=== PATIENT | female | born 1995 | race American Indian/Alaskan Native ===

== ENCOUNTER 2017-04-05 16:35 | Outpatient (CLI) | payer MEDICAID ==
[2017-04-05] MEDS ORDERED: LACTATED RINGERS 500 ML IV ONE (17:03)
[2017-04-05 18:34] VITALS: BP 117/65
--- NOTE | 2017-04-06 07:56 | Ultrasound Report ---
Gestation: Single Position: Cephalic Placenta: Posterior Placental Grade: 1 Heart Rate: 145 BPM
== END 2017-04-05 19:35 | disposition home or self-care (01) ==
LOC: TRG 16:35
PROVIDERS: ATTEND Obstetrics & Gynecology
DX: O47.03 False labor before 37 completed weeks of gestation, third trimester (principal); Z3A.29 29 weeks gestation of pregnancy
CPT/HCPCS: 76815

== ENCOUNTER 2017-06-19 03:54 | Inpatient (IN) | payer MEDICAID ==
[2017-06-19] MEDS ORDERED: LACTATED RINGERS 2,000 ML ONE (04:56)
[2017-06-19] MEDS ORDERED: SUBLIMAZE ONE (04:56)
[2017-06-19] MEDS ORDERED: SUBLIMAZE IV ONE (04:58)
[2017-06-19] MEDS ORDERED: LACTATED RINGERS 1,000 ML IV ONE (04:59)
[2017-06-19] MEDS ORDERED: PITOCin/NS 30 UNIT/500ML 30 UNITS/500 ML BAG IV SCH ×2 (05:00→07:00)
[2017-06-19] MEDS ORDERED: LACTATED RINGERS 1,000 ML IV SCH (05:00)
[2017-06-19 05:29] LABS: Hematocrit 34.9 % (30.3-42.9); Hemoglobin 12.3 gm/dl (10.1-14.3); Mean Corpuscular HGB Conc 35 % (30-34); Mean Corpuscular Hemoglobin 34 pg (28-32); Mean Corpuscular Volume 95 fl (79-97); Platelet Count 195 K/mm3 (140-440); Red Blood Count 3.69 M/mm3 (3.65-5.03); Red Cell Distribution Width 13.1 % (13.2-15.2); White Blood Count 8.1 K/mm3 (4.5-11.0)
[2017-06-19] MEDS ORDERED: ePHEDrine SULFATE ONE (05:37)
[2017-06-19] MEDS ORDERED: fentaNYL-BUPIV 2 MCG/ML-0.125% 200 MCG/100 ML BAG EPIDURAL ONE (05:42)
[2017-06-19] MEDS ORDERED: NARCAN 2 MG/2 ML IV PRN (05:59)
[2017-06-19] MEDS ORDERED: ePHEDrine SULFATE IV PRN (05:59)
--- NOTE | 2017-06-19 05:59 | Anesthesia Consultation ---
Anesthesia Consult and Med Hx Date of service: 06/19/17 - Airway Anesthetic Teeth Evaluation: Good ROM Head & Neck: Adequate Mental/Hyoid Distance: Adequate Mallampati Class: Class II Intubation Access Assessment: Probably Good - Pulmonary Exam CTA: Yes - Pre-Operative Health Status ASA Pre-Surgery Classification: ASA2 Proposed Anesthetic Plan: Epidural - Pulmonary Hx Asthma: No COPD: No Hx Pneumonia: No - Cardiovascular System Hx Hypertension: No - Central Nervous System Hx Seizures: No Hx Psychiatric Problems: No - Endocrine Hx Renal Disease: No Hx End Stage Renal Disease: No Hx Hypothyroidism: No Hx Hyperthyroidism: No - Hematic Hx Anemia: Yes Hx Sickle Cell Disease: No - Other Systems Hx Alcohol Use: No
[2017-06-19] MEDS ORDERED: fentaNYL-BUPIV 2 MCG/ML-0.125% 200 MCG/100 ML BAG EPIDURAL SCH (06:00)
--- NOTE | 2017-06-19 06:37 | History and Physical Report ---
History of Present Illness Date of examination: 06/19/17 (presented in labor) Date of admission: 06/19/17 04:38 Chief complaint: ctx since [place] History of present illness: EDC Confirmation: 06/16/2017 Gestational Age: 18 4/7 weeks Past History : 2 Term Births: 1 Premature Births: 0 Living Children: 1 Para: 1 Aborta: 0 Spont. Ab: 0 # 1 Comments: uncomfirmed - patient states this never happened (reviewed documentation in chart from 12/2010) Risk Factors: Smoked Tobacco Use: Never smoker Smokeless Tobacco Use: Never Passive smoke exposure: no Drug use: no HIV high-risk behavior: low risk Caffeine use: 0 drinks per day Alcohol use: no Exercise: no Seatbelt use: preg-counseling specialist % Dietary Counseling: pn yes Past Medical History: Reviewed history from 01/12/2011 and no changes required: Negative Past Medical History Past Surgical History: Reviewed history from 01/12/2011 and no changes required: negative Past Medical History Anesthesia Complications: negative Anemia: negative Autoimmune Disorder: negative Bleeding Disorder: negative Blood Transfusions: negative Breast Disease: negative Diabetes: negative Heart Disease: negative Hypertension: negative Hepatitis/Liver Disease: negative Kidney Disease/UTI: negative Neurologic/Epilepsy/Migraines: negative Phlebitis/Varicosities: negative Psychiatric: negative Pulmonary Disease/Asthma: negative Thyroid Disease: negative Hospitalizations: negative Surgery (Non-medical assistant ob gyn): negative Abnormal PAP: negative HARRISON Exposure: negative Infertility: negative Uterine Anomaly: negative Uterine Surgery (not C/S): negative Other Gynecologic Problems: negative Family Hx: MGM - HTN No family hx CA Social Hx: Patient is single non smoker Infection History Hx of STD: Trich & CT HIV Risk Eval: low risk Hepatitis B Risk Eval: low risk Personal hx. of genital herpes: no Partner hx. of genital herpes: no Rash, Viral, or Febrile illness since last LMP? no Varicella/Chicken Pox Status: Immunized TB Risk: no Genetic History Congenital Heart Defect: Mom: no Dad: no Rivera Disease: Mom: no Dad: no Thalassemia Mom: no Dad: no Neural Tube Defect Mom: no Dad: no Down's Syndrome Mom: no Dad: no Brody-Sachs Mom: no Dad: no Sickle Cell Disease/Trait Mom: no Dad: no Hemophilia Mom: no Dad: no Muscular Dystrophy Mom: no Dad: no Cystic Fibrosis Mom: no Dad: no Ce Chorea Mom: no Dad: no Mental Retardation Mom: no Dad: no Fragile X Mom: no Dad: no Other Genetic/Chromosomal Disorder Mom: no Dad: no Child w/other defect Mom: no Dad: no Enviromental Exposures Xray Exposure: no Medication, drug, or alcohol use since LMP: no Chemical/Other Exposure: no Exposure to Cat Liter: no Hx of Parvovirus (Fifth Disease): no Occupational Exposure to Children: none FALSECurrent Allergies: No known allergies Laboratory Results Date/Time Collected: 01/17/2017 Routine Urinalysis Leukocytes: negative Nitrite: negative Urobilinogen: negative Protein: Negative Blood: negative Ketone: negative Bilirubin: negative Glucose: Negative Urine HCG: positive Review of Systems General Denies fever, chills, sweats, anorexia, fatigue, weakness, malaise, weight loss and sleep disorder. Denies nausea, vomiting, headache, swelling of legs, abdominal pain, vaginal discharge, vaginal bleeding and contractions. Denies vaginal discharge, incontinence, dysuria, hematuria, urinary frequency, amenorrhea, menorrhagia, abnormal vaginal bleeding, pelvic pain, genital sores, decreased libido, painful periods, painful sex, urinary urgency, hot flashes, vaginal dryness, vaginal itching and vaginal odor. CV Denies chest pains, palpitations, syncope, dyspnea on exertion, orthopnea, PND and peripheral edema. Resp Denies cough, dyspnea at rest, excessive sputum, hemoptysis, wheezing and pleurisy. GI Denies nausea, vomiting, diarrhea, constipation, change in bowel habits, abdominal pain, melena, hematochezia, jaundice, gas/bloating, indigestion/ heartburn, dysphagia and odynophagia. Endo Denies cold intolerance, heat intolerance, polydipsia, polyphagia, polyuria and unusual weight change. Breast Denies left breast lump, right breast lump, nipple discharge, bloody discharge from nipple, breast pain, abnormal mammogram and breast enlargement. MS Denies back pain, joint pain, joint swelling, muscle cramps, muscle weakness, stiffness, arthritis, sciatica, restless legs, leg pain at night and leg pain with exertion. Derm Denies rash, itching, dryness and suspicious lesions. Neuro Denies paralysis, paresthesias, headache, seizures, tremors, vertigo, transient blindness, frequent falls, frequent headaches and difficulty walking. Psych Denies depression, anxiety, irritability and mood swings. Eyes Denies blurring, diplopia, irritation, discharge, vision loss, eye pain and photophobia. ENT Denies earache, ear discharge, tinnitus, decreased hearing, nasal congestion, nosebleeds, sore throat and hoarseness. Allergy Denies urticaria, allergic rash, hay fever and recurrent infections. Heme Denies abnormal bruising, bleeding and enlarged lymph nodes. PHYSICAL EXAM HEENT: PERRLA, normal conjunctiva, external nose and nasal mucosa normal, oropharynx clear Neck/Thyroid: supple, thyroid normal Skin no significant abnormal lesions or rashes Chest: respiratory effort normal, clear to auscultation Breasts: normal without skin changes or masses CV: regular, normal S1-S2, no murmur, no rub, no gallop Abdomen: normal bowel sounds, soft, nontender, no HSM Musculoskeletal: grossly normal ROM in joints, no joint tenderness or muscle weakness Neuro: grossly normal DTRs, sensation, strength, cranial nerves Extremities: no clubbing, cyanosis, or edema LEGAL [employer] Exams Fundal Ht: 18wk size: AGA FHT: + activity: + Past History - Obstetrical History Expected Date of Delivery: 06/16/17 Actual Gestation: 40 Week(s) 3 Day(s) : 2 Para: 1 Hx # Term Pregnancies: 1 Number of Living Children: 1 Medications and Allergies Allergies Allergy/AdvReac Type Severity Reaction Status Date / Time No Known Allergies Allergy Verified 04/05/17 17:02 Home Medications Medication Instructions Recorded Confirmed Last Taken Type No Known Home Medications [No 05/15/13 06/19/17 Unknown History Reported Home Medications] Active Meds: Active Medications Ephedrine Sulfate (Ephedrine Sulfate) 10 mg IV Q2M PRN PRN Reason: Hypotension Lactated Ringer's (Lactated Ringers) 1,000 mls @ 125 mls/hr IV DIRECT ASHLEY Last Admin: 06/19/17 05:34 Dose: 125 mls/hr Oxytocin/Sodium Chloride (Pitocin/Ns 30 Unit/500ml) 30 units in 500 mls @ 2 mls /hr IV TITR ASHLEY PRN Reason: Protocol Last Admin: 06/19/17 05:50 Dose: 2 ml/hr, 2 mls/hr Fentanyl/Bupivacaine/Sodium Chlor (Fentanyl-Bupiv 2 Mcg/Ml-0.125%) 200 mcg in 100 mls @ 12 mls/hr EPIDURAL TITR ASHLEY PRN Reason: Protocol Last Admin: 06/19/17 06:10 Dose: 12 mls/hr Influenza Virus Vaccine Quadrival (Fluarix Quad [id number](36 Mos+) 0.5 ml IM .ONCE ONE Stop: 06/19/17 12:01 Naloxone HCl (Narcan 2 Mg/2 Ml) 0.2 mg IV Q5M PRN PRN Reason: Respiratory sedation - Vital Signs Vital signs: Vital Signs Temp Pulse Resp 97.3 F L 93 H 20 06/19/17 04:05 06/19/17 04:05 06/19/17 04:05 Temp Pulse Resp BP Pulse Ox 97.7 F 104 H 20 128/81 99 06/19/17 05:25 06/19/17 06:35 06/19/17 05:25 06/19/17 06:35 06/19/17 06:30 - Physical Exam Breasts: Positive: deferred Cardiovascular: Regular rate, Normal S1, Normal S2 Lungs: Positive: Normal air movement Abdomen: Positive: normal appearance, soft, normal bowel sounds. Negative: distention, tenderness Genitourinary (Female): Positive: normal external genitalia Vulva: both: normal Vagina: Positive: normal moisture. Negative: discharge Cervix: Negative: lesion, discharge Uterus: Positive: normal size, normal contour Adnexa: both: normal Anus/Rectum: Positive: normal perianal skin, heme negative. Negative: rectal mass, hemorrhoids Extremities: Positive: normal Deep Tendon Reflex Grade: Normal +2 - Obstetrical FHR: auscultation normal, category 1 Uterine Contraction Monitor Mode: External Cervical Dilatation: 5 Cervical Effacement Percentage: 70 station: -2 Uterine Contraction Pattern: Regular Uterine Tone Measurement Phase: Resting Uterine Contraction Intensity: Moderate Results Result Diagrams: 06/19/17 05:00 Abnormal lab results 06/19/17 Range/Units 05:00 MCH 34 H (28-32) pg MCHC 35 H (30-34) % RDW 13.1 L (13.2-15.2) % All other labs normal. Strep Gp B HARRIET Negative Initial Lab: TEST VALUE DATE REVIEWED Blood Type: O+ 10/24/2016 D (Rh) Type: + 10/24/2016 Antibody screen: negative 10/24/2016 Hgb: 13.9 10/24/2016 Hct: 39.9 10/24/2016 Rubella: immune 10/24/2016 VDRL: negative 10/24/2016 HBsAg: negative 10/24/2016 HIV: negative 10/24/2016 8-18 Week Lab: TEST VALUE DATE REVIEWED MSAFP: negative 01/02/2017 Assessment and Plan 22yo @ 40 weeks in labor GBS negative. Pt now has epidural comfortable SVE 5,70,-2 Pit @ 8mu All orders in EMR
--- NOTE | 2017-06-19 07:35 | Progress Note ---
Assessment and Plan patient doing well, comfortable with epidural. AROM clear fluid, anticipate . Dr. Howell aware of patient's status. - Patient Problems (1) 40 weeks gestation of Current Visit: Yes Status: Acute (2) Active labor at term Current Visit: Yes Status: Acute Subjective - Subjective Date of service: 06/19/17 Principal diagnosis: IUP @ 40, laboring Patient reports: no new complaints (comfortable with epidural) Objective - Vital Signs Vital Signs: Vital Signs - 12hr 06/19/17 06/19/17 06/19/17 04:05 04:06 05:09 Temperature 97.3 F L Pulse Rate 93 H 93 H 99 H Respiratory 20 Rate Blood Pressure 122/73 122/71 Blood Pressure [Right] O2 Sat by Pulse Oximetry 06/19/17 06/19/17 06/19/17 05:25 05:49 05:51 Temperature 97.7 F Pulse Rate 99 H 108 H 96 H Respiratory 20 Rate Blood Pressure 125/69 125/70 Blood Pressure 122/71 [Right] O2 Sat by Pulse Oximetry 06/19/17 06/19/17 06/19/17 05:53 05:55 05:57 Temperature Pulse Rate 91 H 92 H 88 Respiratory Rate Blood Pressure 116/67 116/67 127/79 Blood Pressure [Right] O2 Sat by Pulse Oximetry 06/19/17 06/19/17 06/19/17 05:59 06:01 06:03 Temperature Pulse Rate 90 95 H 95 H Respiratory Rate Blood Pressure 127/80 124/78 126/78 Blood Pressure [Right] O2 Sat by Pulse Oximetry 06/19/17 06/19/17 06/19/17 06:05 06:07 06:09 Temperature Pulse Rate 87 88 85 Respiratory Rate Blood Pressure 119/72 113/68 118/71 Blood Pressure [Right] O2 Sat by Pulse 98 Oximetry 06/19/17 06/19/17 06/19/17 06:10 06:11 06:13 Temperature Pulse Rate 90 94 H 94 H Respiratory Rate Blood Pressure 124/77 116/66 Blood Pressure [Right] O2 Sat by Pulse 98 Oximetry 06/19/17 06/19/17 06/19/17 06:15 06:18 06:20 Temperature Pulse Rate 82 80 90 Respiratory Rate Blood Pressure 118/67 112/69 Blood Pressure [Right] O2 Sat by Pulse 98 99 Oximetry 06/19/17 06/19/17 06/19/17 06:23 06:24 06:25 Temperature Pulse Rate 77 82 84 Respiratory Rate Blood Pressure 119/69 112/68 Blood Pressure [Right] O2 Sat by Pulse 99 Oximetry 06/19/17 06/19/17 06/19/17 06:30 06:35 06:40 Temperature Pulse Rate 79 110 H 85 Respiratory Rate Blood Pressure 128/81 Blood Pressure [Right] O2 Sat by Pulse 99 100 100 Oximetry 06/19/17 06/19/17 06/19/17 06:45 06:50 06:55 Temperature Pulse Rate 87 80 88 Respiratory Rate Blood Pressure 120/70 116/71 Blood Pressure [Right] O2 Sat by Pulse 100 100 100 Oximetry 06/19/17 06/19/17 06/19/17 07:00 07:04 07:05 Temperature Pulse Rate 74 95 H 83 Respiratory Rate Blood Pressure 118/66 Blood Pressure [Right] O2 Sat by Pulse 100 100 Oximetry 06/19/17 06/19/17 06/19/17 07:10 07:15 07:18 Temperature 97.5 F L Pulse Rate 83 80 110 H Respiratory 18 Rate Blood Pressure 100/59 Blood Pressure 119/77 [Right] O2 Sat by Pulse 100 99 100 Oximetry 06/19/17 06/19/17 06/19/17 07:20 07:22 07:25 Temperature Pulse Rate 95 H 103 H 96 H Respiratory Rate Blood Pressure 119/77 Blood Pressure [Right] O2 Sat by Pulse 100 100 Oximetry 06/19/17 06/19/17 07:26 07:30 Temperature Pulse Rate 91 H 93 H Respiratory Rate Blood Pressure 116/72 Blood Pressure [Right] O2 Sat by Pulse 100 Oximetry - Exam Breasts: normal Cardiovascular: Regular rate Lungs: Clear to auscultation, Normal air movement Abdomen: Present: normal appearance, soft Vulva: both: normal Uterus: Present: normal FHR: auscultation normal, category 1 Uterine Contraction Monitor Mode: External Cervical Dilatation: 7 (AROM clear) Cervical Effacement Percentage: 100 station: 0 Uterine Contraction Pattern: Regular Uterine Tone Measurement Phase: Contraction Uterine Contraction Intensity: Strong/Firm Extremities: normal Deep Tendon Reflex Grade: Normal +2 - Labs Labs: Abnormal Labs 06/19/17 05:00 MCH 34 H MCHC 35 H RDW 13.1 L Laboratory Results - last 24 hr 06/19/17 05:00 WBC 8.1 RBC 3.69 Hgb 12.3 Hct 34.9 MCV 95 MCH 34 H MCHC 35 H RDW 13.1 L Plt Count 195
--- NOTE | 2017-06-19 09:13 | Procedure Note ---
OB Delivery Note - Delivery Date of Delivery: 06/19/17 ( Male) Developmental Training Counselor: YONIS WALTER Estimated blood loss: 100cc - Vaginal Delivery presentation: vertex Delivery position: OA (TOAN) Intrapartum events: none Delivery induction: none Delivery augmentation: rupture of membranes, pitocin Delivery monitor: external FHT, external uterine Route of delivery: Delivery placenta: spontaneous Delivery cord: 3 umbilical vessels Episiotomy: none Delivery laceration: 1st degree Delivery repair: vicryl Anesthesia: epidural Delivery comments: Male del TOAN over intact perineum, tight shoulders but no dystocia. placed skin to skin, 3 vessel cord clamped and cut. Cord blood collected. Placenta del intact and complete. Pit to IVF. first degree vag lac repaired with vicryl. EBL 100, infant's weight 7#14, Apgars 8/9. Mother and infant remain LDR stable. - A at 1 minute: 8 at 5 minutes: 9 Gender: Male (7#14oz)
[2017-06-19] MEDS ORDERED: PITOCin/NS 20 UNIT/1000ML DRIP 20,000 MILLIUNITS/1,000 ML BAG IV ONE (09:19)
[2017-06-19] MEDS ORDERED: PITOCin/NS 20 UNIT/1000ML DRIP 20 UNITS/1,000 ML BAG IV SCH ×2 (10:00→11:15)
[2017-06-19] MEDS ORDERED: SODIUM CHLORIDE FLUSH SYRINGE 10 ML IV SCH (11:15)
[2017-06-19] MEDS ORDERED: BENADRYL PO PRN (11:15)
[2017-06-19] MEDS ORDERED: PHENERGAN PO PRN (11:15)
[2017-06-19] MEDS ORDERED: DERMOPLAST TP PRN (11:15)
[2017-06-19] MEDS ORDERED: MILK OF MAGNESIA PO PRN (11:15)
[2017-06-19] MEDS ORDERED: TUCKS PAD TP PRN (11:15)
[2017-06-19] MEDS ORDERED: TYLENOL PO PRN (11:15)
[2017-06-19] MEDS ORDERED: ZOFRAN IV PRN (11:15)
[2017-06-19] MEDS ORDERED: DULCOLAX PR PRN (11:15)
[2017-06-19] MEDS: MOTRIN PO SCH ×3 (11:50→23:03)
[2017-06-19] MEDS ORDERED: Fluarix Quad 2017-2018(36 MOS+ IM ONE (12:00)
[2017-06-19] MEDS: NORCO 5/325 PO PRN ×2 (12:17→19:34)
[2017-06-19] MEDS: PRENATAL VITAMIN PO SCH (14:49)
[2017-06-19] MEDS: COLACE PO SCH ×2 (14:49→21:19)
[2017-06-19 21:44] LABS: Hematocrit 30.1 % (30.3-42.9); Hemoglobin 10.2 gm/dl (10.1-14.3)
[2017-06-20] MEDS: NORCO 5/325 PO PRN (01:21)
[2017-06-20] MEDS: MOTRIN PO SCH ×4 (05:22→23:40)
[2017-06-20] MEDS ORDERED: BOOSTRIX IM ONE (06:00)
--- NOTE | 2017-06-20 07:00 | Discharge Summary ---
Providers - Providers Date of Admission: 06/19/17 04:38 Date of discharge: 06/20/17 (pt asked to have option to go home today) Attending physician: FELY GREEN 06/19/17 11:15 Consult to [employer] [CONS] Routine Reason For Exam: assistance with , SNS Primary care physician: FELY GREEN Hospitalization Reason for admission: active labor Delivery: Episiotomy: none Laceration: none Incision: normal Other procedures: none complications: none Discharge diagnosis: IUP at term delivered [place] baby: male Hospital course: uncomplicated vaginal delivery Pt w/o complaint VSS FF below umb Lochia small perineum intact H&H 05/21 No s/ sx of anemia Drop r/t blood loss from delivery Doing well s/p vag del P: d/c today with instructions RTO 4 weeks PP care. Declines BC @ this time. Condition at discharge: Good Disposition: DC-01 TO HOME OR SELFCARE - Discharge Diagnoses (1) (normal spontaneous vaginal delivery) Status: Acute Comment: RTO 4 weeks PP care Plan - Discharge Medications Prescriptions: Ibuprofen [Motrin 800 MG tab] 800 mg PO Q8HR PRN #30 tablet PRN Reason: Pain Lidocain2.5%/Prilocai2.5% [Emla] 5 gm TP ONCE PRN #1 tube PRN Reason: Pain - Provider Discharge Summary Activity: routine, no sex for 6 weeks, no heavy lifting 4 weeks, no strenuous exercise Diet: routine Instructions: routine Additional instructions: [] Smoking cessation referral if applicable(refer to patient education folder for contact #) [] Refer to [facility] Booklet Call your doctor immediately for: * Fever > 100.5 * Heavy vaginal bleeding ( >1 pad per hour) * Severe persistent headache * Shortness of breath * Reddened, hot, painful area to leg or breast * Drainage or odor from incision. * Keep incision clean and dry at all times and follow doctor's instructions regarding bathing/showering - Follow up plan Follow up: FELY GREEN MD [Primary Care Provider] - 7 Days (Congratulations! Please call [phone] to schedule your visit in 4 weeks and your son's circumcision in 1 week. Bring the EMLA cream with you to his visit. Call with any concerns.)
[2017-06-20] MEDS: COLACE PO SCH (09:43)
[2017-06-20] MEDS: PRENATAL VITAMIN PO SCH (09:43)
[2017-06-20] MEDS ORDERED: Fluarix Quad 2017-2018(36 MOS+ IM ONE (12:00)
[2017-06-21] MEDS: MOTRIN PO SCH (06:08)
[2017-06-21 09:30] VITALS: BP 113/70
[2017-06-21] MEDS: PRENATAL VITAMIN PO SCH (11:15)
[2017-06-21] MEDS: COLACE PO SCH (11:15)
== END 2017-06-21 13:15 | disposition home or self-care (01) | DRG 775 ==
LOC: TRG 03:54 → LD 04:38 → OB 10:55
PROVIDERS: ADMIT Obstetrics & Gynecology; ATTEND Obstetrics & Gynecology
PROC: 10E0XZZ Delivery of Products of Conception, External Approach (ICD-10-PCS; principal; 2017-06-19)
PROC: 10907ZC Drainage of Amniotic Fluid, Therapeutic from Products of Conception, Via Natural or Artificial Opening (ICD-10-PCS; 2017-06-19)
PROC: 3E0R3BZ Introduction of Anesthetic Agent into Spinal Canal, Percutaneous Approach (ICD-10-PCS; 2017-06-19)
PROC: 00HU33Z Insertion of Infusion Device into Spinal Canal, Percutaneous Approach (ICD-10-PCS; 2017-06-19)
PROC: 0HQ9XZZ Repair Perineum Skin, External Approach (ICD-10-PCS; 2017-06-19)
PROC: 3E0234Z Introduction of Serum, Toxoid and Vaccine into Muscle, Percutaneous Approach (ICD-10-PCS; 2017-06-19)
DX: O70.0 First degree perineal laceration during delivery (principal); Z3A.40 40 weeks gestation of pregnancy; Z37.0 Single live birth; Z23 Encounter for immunization; Z82.49 Family history of ischemic heart disease and other diseases of the circulatory system
CPT/HCPCS: 36415; 85014; 85018; 85027; 86592; 86850; 86900; 86901; 90471; 90686; 90715; G0008; J2590; J3010; J7120

== ENCOUNTER 2021-04-06 22:23 | Emergency (ER) | payer MEDICAID ==
--- NOTE | 2021-04-06 23:02 | XRay Report ---
CHEST 1 VIEW 04/06/2021 10:55 PM INDICATION / CLINICAL INFORMATION: [place]. COMPARISON: None available. FINDINGS: SUPPORT DEVICES: None. HEART / MEDIASTINUM: No significant abnormality. LUNGS / PLEURA: No significant pulmonary or pleural abnormality. No pneumothorax. ADDITIONAL FINDINGS: No significant additional findings. IMPRESSION: 1. No acute findings. Signer Name: Fernandez Navarrete MD Signed: 04/06/2021 10:57 PM Workstation Name: [id number]
[2021-04-06] MEDS ORDERED: BUDESONIDE 0.5 MG/2 ML NEBU IH ONE (23:07)
[2021-04-06] MEDS ORDERED: ALBUTEROL 2.5 MG/3 ML NEBU IH ONE (23:07)
[2021-04-06] MEDS ORDERED: IPRATROPIUM 0.02% NEBU 2.5 ML IH ONE (23:07)
--- NOTE | 2021-04-06 23:14 | Emergency Department Report ---
ED General Adult HPI - General Chief complaint: Dyspnea/Respdistress Stated complaint: CHEST PAIN Time Seen by Provider: 04/06/21 22:45 Source: patient Mode of arrival: Ambulatory Limitations: No Limitations - History of Present Illness Initial comments: 26-year-old female patient presents to emergency department with complaints of chest tightness and cough following inhaled chemical exposure. Patient states she was cleaning her bathroom with multiple products without using a mask. After she inhaled chemicals, she began to notice tightness in her chest and began coughing. Patient called the [facility], who instructed her to go outside and "get fresh air." When symptoms failed to improve, she came to the emergency department for further evaluation. Patient has no known history of pre-existing lung conditions. Denies fever, chills, hemoptysis, wheezing, palpitations, syncope, dizziness. Denies all other complaints at this time. - Related Data Home Medications Medication Instructions Recorded Confirmed Last Taken oxyCODONE /ACETAMINOPHEN [Percocet 1 tab PO Q6HR PRN 09/03/18 09/03/18 Unknown 5/325] Vitamin 1 tab PO DAILY 02/29/20 02/29/20 1 Day Ago ~02/28/20 Previous Rx's Medication Instructions Recorded Last Taken Type Ibuprofen [Motrin] 600 mg PO Q8H PRN #30 tablet 09/05/18 Unknown Rx oxyCODONE /ACETAMINOPHEN [Percocet 1 tab PO Q6HR PRN #20 tablet 09/05/18 Unknown Rx 5/325] Lidocain2.5%/Prilocai2.5% [Emla] 2 gm TP ONCE #1 tube 02/29/20 Unknown Rx Albuterol Sulfate [Proair 90 mcg IH Q4H #1 aer.pw.bas 04/06/21 Unknown Rx Digihaler] Allergies Allergy/AdvReac Type Severity Reaction Status Date / Time No Known Allergies Allergy Verified 09/03/18 18:11 ED Review of Systems ROS: Stated complaint: CHEST PAIN Other details as noted in HPI Other: GENERAL: Negative for fever, chills, weight change, anorexia, fatigue. ENT: Negative for ear pain, difficulty hearing, sore throat, nasal congestion, epistaxis. CARDIOVASCULAR: Positive for chest tightness. PULMONARY: Positive for cough. GASTROINTESTINAL: Negative for abdominal pain, nausea, vomiting, diarrhea, constipation. MUSCULOSKELETAL: Negative for joint pain, joint swelling, myalgias, back pain, neck pain. NEUROLOGICAL: Negative for headache, seizure, syncope, paresthesias, weakness. INTEGUMENTARY: Negative for erythema, rash, diaphoresis, laceration, ecchymosis. HEMATOLOGICAL: Negative for hemoptysis, hematemesis, hematochezia, hematuria. PSYCHIATRIC: Negative for hallucinations, suicidal ideation, homicidal ideation, anxiety, depression. ED Past Medical Hx - Past Medical History Previous Medical History?: No Hx Hypertension: No Hx Heart Attack/AMI: No Hx Congestive Heart Failure: No Hx Diabetes: No Hx Deep Vein Thrombosis: No Hx Liver Disease: No Hx Renal Disease: No Hx Sickle Cell Disease: No Hx Seizures: No Hx Asthma: No Hx COPD: No Hx HIV: No - Surgical History Past Surgical History?: No Hx Pacemaker: No Hx Internal Defibrillator: No - Social History Smoking Status: Never Smoker - Medications Home Medications: Home Medications Medication Instructions Recorded Confirmed Last Taken Type oxyCODONE /ACETAMINOPHEN [Percocet 1 tab PO Q6HR PRN 09/03/18 09/03/18 Unknown History 5/325] Ibuprofen [Motrin] 600 mg PO Q8H PRN #30 tablet 09/05/18 Unknown Rx oxyCODONE /ACETAMINOPHEN [Percocet 1 tab PO Q6HR PRN #20 tablet 09/05/18 Unknown Rx 5/325] Lidocain2.5%/Prilocai2.5% [Emla] 2 gm TP ONCE #1 tube 02/29/20 Unknown Rx Vitamin 1 tab PO DAILY 02/29/20 02/29/20 1 Day Ago History ~02/28/20 Albuterol Sulfate [Proair 90 mcg IH Q4H #1 aer.pw.bas 04/06/21 Unknown Rx Digihaler] ED Physical Exam - General Limitations: No Limitations - Other Other exam information: General: Awake and alert. No acute distress. Head: Atraumatic, normocephalic. Eyes: EOMI. Pupils are equal and round. Normal sclera and conjunctiva. ENT: Oral mucosa is moist. Normal pharyngeal exam. Neck: Supple. No lymphadenopathy. Pulmonary: No respiratory distress. Clear to auscultation bilaterally. Cardiac: Regular rate and rhythm. Pulses are palpable and equal bilaterally. No lower extremity cyanosis or edema. Skin: Warm and dry. No rashes. Abdomen: Soft, non-tender, non-protuberant. No guarding, rigidity, or rebound. Bowel sounds are normal. No organomegaly or masses noted. Back: Normal alignment. No CVA tenderness. Extremities: Symmetrical. Full range of motion intact. Neurological: Alert and oriented, appropriately interactive, no focal deficits. Psych: Cooperative. Appropriate mood and affect. Speech is evenly metered. Thoughts are logically construed. ED Course Vital Signs 04/06/21 04/06/21 04/06/21 22:39 23:42 23:58 Temperature 98.1 F Pulse Rate 74 71 Pulse Rate [ 72 Bilateral] Respiratory 16 16 Rate Respiratory 20 Rate [Bilateral ] Blood Pressure 146/83 Blood Pressure 137/90 [Right] O2 Sat by Pulse 100 100 Oximetry ED Medical Decision Making - Medical Decision Making Differential diagnosis including but not limited to: chemical pneumonitis, asthma exacerbation, pneumonia, pleural effusion, pneumothorax Patient presents to the emergency department with complaints of chest tightness and cough following inhaled chemical exposure. She is afebrile, hemodynamically stable, no hypoxia, no respiratory distress, ambulatory without assistance. clinical account executive spoke with Poison Control Center upon patient arrival to the emergency department. Poison Control Center recommended chest x-ray and bronchodilators. On reevaluation, patient remains stable and symptoms have improved. No hypoxia, no respiratory distress. Chest x-ray is unremarkable. Symptoms controlled after breathing treatment. No clinical indication for further diagnostic work- up on an emergent basis at this time. Patient will be discharged home with beta agonist inhaler and referred to primary care provider for close outpatient follow-up. Emphasized the importance of refraining from continued inhaled chemical exposure. Patient expressed understanding and is agreeable to plan of care. Strict return precautions provided. Repeat exam is unremarkable and benign. History, exam, diagnostic testing, and current condition do not suggest worrisome pathology to warrant further testing, continued ED treatment, admission, or surgical evaluation at this point. Given the low probability of a significant medical illness, it would be more likely to result in harm than benefit to perform further testing at this stage. Discussed findings, presumptive diagnosis, need for follow-up and specific signs/symptoms that should prompt immediate return to the emergency department. Instructions were explained in detail to the patient in addition to giving written discharge information. Patient expressed understanding and was given the opportunity to ask questions, all of which were satisfactorily answered prior to discharge home. Critical care attestation.: If time is entered above; I have spent that time in minutes in the direct care of this critically ill patient, excluding procedure time. ED Disposition Clinical Impression: Chemical pneumonitis Disposition: HOME / SELF CARE / HOMELESS Is pt being admited?: No Does the pt Need Aspirin: No Condition: Stable Instructions: Pneumonitis Additional Instructions: Use albuterol as directed. Please avoid prolonged chemical exposure. Follow-up with primary care provider this week. Call tomorrow to schedule an appointment. See referral information below. Return to the emergency department immediately for new or worsening symptoms. Prescriptions: Albuterol Sulfate [Proair Digihaler] 90 mcg IH Q4H #1 aer.pw.bas Referrals: ADELAIDA RAMIREZ MD [Staff Physician] - 3-5 Days [facility] [Provider Group] - 3-5 Days Time of Disposition: 01:02
[2021-04-07] VITALS: BP 137/90
--- NOTE | 2021-04-08 13:25 | Electrocardiograph Report ---
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
== END 2021-04-07 01:41 | disposition home or self-care (01) ==
LOC: ED 22:23
DX: R06.03 Acute respiratory distress (principal); R07.89 Other chest pain; J68.0 Bronchitis and pneumonitis due to chemicals, gases, fumes and vapors
CPT/HCPCS: 71045; 93005; 94644; 99283

== ENCOUNTER 2021-07-26 06:22 | Day surgery (SDC) | payer MEDICAID ==
--- NOTE | 2021-07-21 12:59 | Short Stay Summary ---
Short Stay Documentation Date of service: 07/21/21 Narrative H&P: Missed , she desires surgical intervention Impression & Recommendations: Problem # 1: , missed (ICD-632) ([id number]-M97.1) Consent reviewed and signed . Possible laparoscopy or laparotomy explained to patient. The risks and alternatives for this surgery were reviewed with the patient. She was informed of the risks of, but not limited to, possible bleeding, infection, injury to bowel, bladder, ureters or other adjacent organs or uterine perforation, infertility. The patient was instructed/informed the following: The normal length of hospital stay for this procedure. Nothing to eat or drink after midnight the evening prior to surgery. Infection precautions reviewed, patient to call for any signs or symptoms of infection. The usual discomforts associated with this procedure were detailed. Proper use of pain medicines was reviewed. Patient was given ample opportunity to have all her questions answered before signing informed consent. Patient has been reassessed/reevaluated/re-examined. H&P has been reviewed. No interval changes. - History H&P: obtained from office Past Medical History: No medical history Past Surgical History: Other (D&C) Social history: no significant social history - Allergies and Medications Current Medications: Allergies No Known Allergies Allergy (Verified 09/03/18 18:11) Home Medications Medication Instructions Recorded Confirmed Last Taken Type No Known Home Medications [No 07/20/21 07/20/21 Unknown History Reported Home Medications] Active Medications Cefazolin Sodium (Ancef/Sterile Water 2 Gm/20 Ml) 2 gm in 20 mls @ 80 mls/hr IV PREOP NR; Protocol - Physical exam General appearance: no acute distress Lungs: Clear to auscultation Heart: Regular rate Female Genitourinary: deferred (for EUA) - Hospital course Hospital course: Normal - Disposition Condition at discharge: Good Disposition: 01 HOME / SELF CARE / HOMELESS - Discharge Diagnoses (1) Missed with demise before 20 completed weeks of gestation Status: Acute Short Stay Discharge Plan Activity: other (No sex. ) Weight Bearing Status: Full Weight Bearing Diet: regular Follow up with: TAIWO ELISE MD [Staff Physician] - (As scheduled) Prescriptions: Methylergonovine [Methergine] 0.2 mg PO Q6HR #4 tablet Ibuprofen [Motrin 800 MG tab] 800 mg PO Q8HR PRN #30 tablet PRN Reason: moderate pain oxyCODONE /ACETAMINOPHEN [Percocet 5/325] 1 tab PO Q6HR PRN #5 tablet PRN Reason: Pain
[2021-07-25 11:04] LABS: Basophils % (Auto) 0.9 % (0.0-1.8); Hematocrit 37.4 % (30.3-42.9); Hemoglobin 12.1 gm/dl (10.1-14.3); Lymphocytes # (Auto) 1.6 K/mm3 (1.2-5.4); Lymphocytes % (Auto) 34.7 % (13.4-35.0); Mean Corpuscular HGB Conc 32 % (30-34); Mean Corpuscular Volume 89 fl (79-97); Monocytes # (Auto) 0.4 K/mm3 (0.0-0.8); Monocytes % (Auto) 8.8 % (0.0-7.3); Platelet Count 238 K/mm3 (140-440); Red Blood Count 4.22 M/mm3 (3.65-5.03)
[~2021-07-26 06:22] MED LIST: LACTATED RINGERS 1,000 ML IV SCH; MIDAZOLAM 2 MG/2 ML INJ IV NR; ceFAZolin/Water 2 GM/20 ML 2 GM/20 ML SYRINGE IV NR
[2021-07-26] MEDS ORDERED: METHYLERGONOVINE MALEATE 0.2 MG/ML VIAL IM ONE ×2 (07:06→08:09)
--- NOTE | 2021-07-26 07:23 | Anesthesia Consultation ---
Anesthesia Consult and Med Hx Date of service: 07/26/21 - Airway Anesthetic Teeth Evaluation: Good ROM Head & Neck: Adequate Mental/Hyoid Distance: Adequate Mallampati Class: Class II Intubation Access Assessment: Probably Good - Pre-Operative Health Status ASA Pre-Surgery Classification: ASA2 Proposed Anesthetic Plan: General - Pulmonary Hx Smoking: Yes (former smoker) Hx Respiratory Symptoms: No - Cardiovascular System Hx Hypertension: No - Central Nervous System CVA: No - Endocrine Hx Renal Disease: No Hx Liver Disease: No Hx Insulin Dependent Diabetes: No Hx Non-Insulin Dependent Diabetes: No Hx Thyroid Disease: No - Other Systems Hx Obesity: Yes (BMI 32) - Additional Comments Anesthesia Medical History Comments: No hx anesthetic complications.
--- NOTE | 2021-07-26 07:24 | Anesthesia Day of Surgery ---
Anesthesia Day of Surgery - Day of Surgery Patient Examined: Yes Patient H&P Reviewed: Yes Patient is NPO: Yes
[2021-07-26] MEDS ORDERED: LIDOCAINE MPF (2%) 20 MG/1 ML VIAL 5 ML ONE (07:30)
[2021-07-26] MEDS ORDERED: dexAMETHasone 20 MG/5 ML VIAL ONE (07:30)
[2021-07-26] MEDS ORDERED: fentaNYL 100 MCG/2 ML INJ ONE (07:30)
[2021-07-26] MEDS ORDERED: ONDANSETRON 4 MG/2 ML INJ ONE (07:30)
[2021-07-26] MEDS ORDERED: propofoL 200 MG/20 ML VIAL IV ONE (07:30)
[2021-07-26] MEDS ORDERED: ONDANSETRON 4 MG/2 ML INJ IV PRN (08:00)
[2021-07-26] MEDS ORDERED: HYDROcodone/ACETAMINOPHEN 5-325 MG TAB PO PRN (08:00)
[2021-07-26] MEDS ORDERED: HYDROmorphone 1 MG/1 ML INJ IV PRN (08:00)
[2021-07-26] MEDS ORDERED: SODIUM CHLORIDE 0.9% IRR 1,500 ML BOTTLE IR ONE (08:05)
[2021-07-26] MEDS ORDERED: KETOROLAC 30 MG/1 ML INJ ONE (08:20)
--- NOTE | 2021-07-26 08:41 | Operative Report ---
Operative Report Operative Report: Date: 07/26/2021 PREOPERATIVE DIAGNOSES: 1. Missed POSTOPERATIVE DIAGNOSES: 1. Missed PROCEDURE PERFORMED: 1. Cervical dilation 2. Uterine curettage (D&C). ANESTHESIA: General ESTIMATED BLOOD LOSS: 200 mL Surgeon: Minda Briggs MD INDICATIONS: This is a 26-year-old female that presents missed . PROCEDURE: The patient was seen in the preoperative suite. Expected procedure and postoperative course discussed with her. She was taken to the operative suite where general anesthesia was performed. She was placed in a dorsal lithotomy position. . A bimanual exam was done, the uterus was found to be midline and mobile approximately 10 weeks size. She was prepped and draped in the normal sterile fashion. Timeout was performed. Her bladder was drained with the red Gill catheter which produced approximately 20 cc of clear yellow urine. The cervix and vagina were grossly normal with no obvious masses or deformities. A bivalve operative speculum was placed in the vagina and the anterior lip of the cervix was grasped with the single-tooth Allis clamp. The uterus was sounded to ~10 cm. The cervix was progressively dilated to allow 8 mm curved Vacurette. The Vacurette was placed intrauterine very carefully using anterior wall for guidance. Using approximately 55 mmHg pressure, tissue was removed from the uterus. A sharp curettage of the uterine cavity was then performed until a gritty texture was felt on all the surfaces. The specimen was collected and sent to pathology on [facility] for evaluation, permanent. No evidence of perforation was noted. Methergine was given IM per anesthesia. At this point procedure was ended. The Allis and speculum were removed. Uterine massage was performed. No bleeding from the cervix was noted. The cervix was found to be hemostatic. Counts were correct. Patient was taken to the PACU stable. Tissue obtained with the Vacurette as well as sharp curettage was sent to pathology for permanent evaluation.
[2021-07-26 10:15] VITALS: BP 132/70
--- NOTE | 2021-07-26 10:46 | Post Anesthesia Evaluation ---
- Post Anesthesia Evaluation Patient Participated: Yes Airway Patent: Yes Stable Respiratory Function: Yes Nausea/Vomiting: No Temp > 96.8F: Yes Pain Manageable: Yes Adequeate Hydration: Yes Anesthesia Complications: No
== END 2021-07-26 10:05 | disposition home or self-care (01) ==
LOC: OR 06:22
PROVIDERS: ATTEND Obstetrics & Gynecology
DX: O02.1 Missed abortion (principal); E66.9 Obesity, unspecified; Z79.899 Other long term (current) drug therapy; Z68.32 Body mass index [BMI] 32.0-32.9, adult; Z3A.10 10 weeks gestation of pregnancy; Z20.822 Contact with and (suspected) exposure to COVID-19
CPT/HCPCS: 36415; 59820; 85025; 86850; 86900; 86901; 88305; J0690; J1100; J1170; J1885; J2210; J2405; J2704; J3010; J3490; J7120; U0003